=== PATIENT | female | born 1990 | race Caucasian/White ===

== ENCOUNTER 2020-09-08 03:49 | Inpatient (IN) ==
--- NOTE | 2020-09-08 04:12 | ERNOTE ---
Medical Problem HPI - Narrative Date of Service: 09/08/20 - General Chief Complaint: General Assessment Time Seen by Provider: 09/08/20 04:07 - Immun/Allergies/Home Medications Immunizations: IMMUNIZATION HX Immunizations Up to Date Yes Allergies/Adverse Reactions: Allergies No Known Allergies Allergy (Unverified 09/08/20 04:03) Home Medications: HOME MEDICATIONS NK 09/08/20 [Last Taken Unknown] - History of Present History Narrative: 30-year-old female status post vaginal delivery at home brought in by EMS. According to EMS patient had already delivered the baby prior to their arrival but upon arrival mother had some bleeding and delivered the placenta and the had Apgars of 8-9. Review of Systems - Review of Systems Constitutional: Present: See HPI Genitourinary: Present: other - Status post vaginal delivery All Other Systems: All systems neg except as marked Medical History (Last Reviewed 09/08/20 @ 04:32 by Андрей Dalton MD) No pertinent past medical history Surgical History: Surgical History (Last Reviewed 09/08/20 @ 04:32 by Андрей Dalton MD) No significant past surgical history Family History: Family History (Last Reviewed 09/08/20 @ 04:32 by Андрей Dalton MD) Other No pertinent family history Social History: (Last Reviewed 09/08/20 @ 04:32 by Андрей Dalton MD) Tobacco: Smoking Status: Never smoker Alcohol: alcohol intake: never Substance Use: substance use type: does not use Physical Exam - Physical Exam General Appearance: Present: wd/wn, alert, no apparent distress Head Exam: Present: normal inspection, no evidence of injury Neck: Present: normal inspection, nontender, supple, full range of motion Respiratory: Present: no respiratory distress, normal breath sounds, no accessory muscle use Cardiovascular/Chest: Present: regular rate, rhythm, normal peripheral pulses Pelvic Exam: Present: other - uterus below umbilicus continues some bleeding. placenta delivered Back Exam: Present: normal inspection Extremity Exam: Present: normal inspection, no edema Neurological Exam: Present: alert, oriented, normal mood/affect, no motor/sensory deficits Skin Exam: Present: normal color, warm/dry Progress - Date and Time Seen: Date and Time: 09/08/20 04:[address] Odom on-call for [employer] who recommended we transfer the patient over to the area and she will evaluate the patient there. However in an attempt to keep mother and baby together patient is still here therefore will place an IV and ordered Pitocin IM for 1 dose. Patient will be moved over shortly - Vital Signs Vital Signs: Vital Signs 09/08/20 03:50 Temperature 36.5 C Pulse Rate 128 H Respiratory Rate 16 Blood Pressure 151/99 H O2 Sat by Pulse Oximetry 98 - Progress/Reassessment Chief Complaint: General Assessment Departure Clinical Impression: Vaginal delivery - Departure Disposition: Short Term Hospital Inpatient Condition: Fair Referrals: Bc Harmon MD [Primary Care Provider] -
[2020-09-08 04:32] LABS: Hematocrit 32.9 % (37.0-47.0); Hemoglobin 10.7 gm/dL (12.5-16.0); Mean Cell Volume 78.5 fl (78-100); Mean Corpuscular Hemoglobin 25.5 pg (27-31); Mean Corpuscular Hgb Conc 32.5 g/dl (32-36); Mean Platelet Volume 11.3 fl (8-12.5); Platelet Count 248 K/mm3 (150-450); Red Blood Count 4.19 M/mm3 (4.2-5.4); Red Cell Distribution Width 14.2 % (11.5-14.0); White Blood Count 16.5 K/mm3 (4.0-10.5)
[2020-09-08] MEDS ORDERED: NORMAL SALINE 1,000 ML IV ONE (04:35)
[2020-09-08 04:43] LABS: Albumin * 2.2 gm/dl (3.4-5.0); Anion Gap 12.7 mmol/L (6.8-13.8); BUN/Creatinine Ratio 14.5 (9.0-21.6); Bilirubin, Total 0.2 mg/dL (0.0-1.1); Ca. Corrected For Albumin 9.6 mg/dL (8.4-10.2); Calcium * 8.5 mg/dL (7.9-10.9); Carbon Dioxide 23.3 mmol/L (24-32.6); Total Protein 5.9 gm/dL (6.2-8.2)
[2020-09-08] MEDS: OXYTOCIN 10 UNITS/ML SYRG IM ONE ×2 (04:57→05:40)
[2020-09-08 05:07] LABS: Urine Bilirubin Negative (NEGATIVE); Urine Blood 250 /ul (NEGATIVE); Urine Ketone Negative (NEGATIVE); Urine Nitrite Negative (NEGATIVE); Urine Protein >=300 mg/dL (NEGATIVE); Urine Specific Gravity 1.025 SP.GR. (1.005-1.010); Urine Urobilinogen Normal (NORMAL)
[2020-09-08 05:08] LABS: Urine Appearance Turbid (CLEAR); Urine Bacteria None Seen; Urine Color Red; Urine RBC >50 /hpf (0-5); Urine WBC None Seen /hpf (0-5)
[2020-09-08 05:14] LABS: Cocaine Ur Negative (NEGATIVE); Urine Barbiturate Negative (NEGATIVE); Urine Benzodiazepines Negative (NEGATIVE); Urine Opiates Negative (NEGATIVE); Urine PCP Negative (NEGATIVE)
[2020-09-08 05:19] LABS: Urine THC Negative (NEGATIVE)
[2020-09-08 11:40] LABS: Hematocrit 28.3 % (37.0-47.0); Hemoglobin 9.2 gm/dL (12.5-16.0); Mean Cell Volume 78.2 fl (78-100); Mean Corpuscular Hemoglobin 25.4 pg (27-31); Mean Corpuscular Hgb Conc 32.5 g/dl (32-36); Mean Platelet Volume 11.7 fl (8-12.5); Neutrophil # 11.4 K/mm3 (1.3-6.0); Neutrophil % 79.2 % (42-75.0); Platelet Count 214 K/mm3 (150-450); Red Blood Count 3.62 M/mm3 (4.2-5.4); White Blood Count 14.4 K/mm3 (4.0-10.5)
--- NOTE | 2020-09-08 12:06 | HP ---
Chief Complaint - Chief Complaint Date of Service: 09/08/20 Time of Service: 11:59 Chief Complaint: Patient delivered at home History of Present Illness: 30 year old at 32w 0d who delivered at home and was brought in by EMS. She does not want to give any of her history today so information is obtained from nursing staff. Her LMP was sometime in January and an maber told the patient her EDC was 11/03/2020. Medical History (Last Reviewed 09/08/20 @ 04:32 by Андрей Dalton MD) No pertinent past medical history Surgical History: Surgical History (Last Reviewed 09/08/20 @ 04:32 by Андрей Dalton MD) No significant past surgical history Family History: Family History (Last Reviewed 09/08/20 @ 04:32 by Андрей Dalton MD) Other No pertinent family history Social History: (Last Reviewed 09/08/20 @ 04:32 by Андрей Dalton MD) Tobacco: Smoking Status: Never smoker Alcohol: alcohol intake: never Substance Use: substance use type: does not use Review Of Systems (GEN) - Review of Systems Additional Comments: Unable to obtain. The patient does not want to speak to anyone today and is refusing all care Immunizations: IMMUNIZATION HX Immunizations Up to Date Yes Allergies/Adverse Reactions: Allergies Allergy/AdvReac Type Severity Reaction Status Date / Time No Known Allergies Allergy Unverified 09/08/20 04:03 Home Medications: HOME MEDICATIONS NK 09/08/20 [Last Taken Unknown] Exam - Exam Vital Signs: Vital Signs - Last Taken Temp 36.8 C 09/08/20 07:24 Pulse 86 09/08/20 08:30 Resp 16 09/08/20 08:30 BP 113/78 09/08/20 08:30 Pulse Ox 100 09/08/20 08:30 Constitutional: Present: Alert, Oriented x3, No distress ENT Exam: Present: hearing grossly normal Eye Exam: bilateral eye: normal inspection Skin Exam: Present: normal color Neurologic: Present: alert, oriented x 3 Appearance: Present: appropriate appearance, impaired insight Eye contact: Present: avoids eye contact, refused to answer, uncooperative Diagnostic Studies: Abnormal Lab Results 09/08/20 09/08/20 09/08/20 Range/Units 04:15 04:15 04:27 WBC 16.5 H (4.0-10.5) K/mm3 RBC 4.19 L (4.2-5.4) M/mm3 Hgb 10.7 L (12.5-16.0) gm/dL Hct 32.9 L (37.0-47.0) % MCH 25.5 L (27-31) pg RDW 14.2 H (11.5-14.0) % Immature Gran % (Auto) 0.50 H (0.001-0.429) % Immature Gran # (Auto) 0.08 H (0.000-0.0310) K/mm3 Neutrophils % 85.0 H (42-75.0) % Lymphocytes % 6.8 L (20-51) % Neutrophils # 14.0 H (1.3-6.0) K/mm3 Lymphocytes # 1.12 L (1.5-3.5) k/mm3 Monocytes # 1.2 H (0.0-1.0) k/mm3 Carbon Dioxide 23.3 L (24-32.6) mmol/L Est GFR (Non-Af Amer) 140 H (60-130) mL/min Random Glucose 112 H (70-110) mg/dL ALT 13 L (19-67) U/L Alkaline Phosphatase 208 H (50-170) U/L Total Protein 5.9 L (6.2-8.2) gm/dL Albumin 2.2 L (3.4-5.0) gm/dl Urine pH 8.0 H (5.0-7.0) pH Urine Protein >=300 H (NEGATIVE) mg/dL Urine Glucose (UA) 100 H (NEGATIVE) mg/dL Urine Blood 250 H (NEGATIVE) /ul Urine RBC >50 H (0-5) /hpf 09/08/20 Range/Units 11:33 WBC 14.4 H (4.0-10.5) K/mm3 RBC 3.62 L (4.2-5.4) M/mm3 Hgb 9.2 L (12.5-16.0) gm/dL Hct 28.3 L (37.0-47.0) % MCH 25.4 L (27-31) pg RDW (11.5-14.0) % Immature Gran % (Auto) 0.50 H (0.001-0.429) % Immature Gran # (Auto) 0.07 H (0.000-0.0310) K/mm3 Neutrophils % 79.2 H (42-75.0) % Lymphocytes % 11.2 L (20-51) % Neutrophils # 11.4 H (1.3-6.0) K/mm3 Lymphocytes # (1.5-3.5) k/mm3 Monocytes # 1.2 H (0.0-1.0) k/mm3 Carbon Dioxide (24-32.6) mmol/L Est GFR (Non-Af Amer) (60-130) mL/min Random Glucose (70-110) mg/dL ALT (19-67) U/L Alkaline Phosphatase (50-170) U/L Total Protein (6.2-8.2) gm/dL Albumin (3.4-5.0) gm/dl Urine pH (5.0-7.0) pH Urine Protein (NEGATIVE) mg/dL Urine Glucose (UA) (NEGATIVE) mg/dL Urine Blood (NEGATIVE) /ul Urine RBC (0-5) /hpf Laboratory Results WBC 14.4 K/mm3 (4.0-10.5) H 09/08/20 11:33 RBC 3.62 M/mm3 (4.2-5.4) L 09/08/20 11:33 Hgb 9.2 gm/dL (12.5-16.0) L 09/08/20 11:33 Hct 28.3 % (37.0-47.0) L 09/08/20 11:33 MCV 78.2 fl (78-100) 09/08/20 11:33 MCH 25.4 pg (27-31) L 09/08/20 11:33 MCHC 32.5 g/dl (32-36) 09/08/20 11:33 RDW 14.0 % (11.5-14.0) 09/08/20 11:33 Plt Count 214 K/mm3 (150-450) 09/08/20 11:33 MPV 11.7 fl (8-12.5) 09/08/20 11:33 Immature Gran % (Auto) 0.50 % (0.001-0.429) H 09/08/20 11:33 Immature Gran # (Auto) 0.07 K/mm3 (0.000-0.0310) H 09/08/20 11:33 Neutrophils % 79.2 % (42-75.0) H 09/08/20 11:33 Lymphocytes % 11.2 % (20-51) L 09/08/20 11:33 Monocytes % 8.4 % (0.0-9) 09/08/20 11:33 Eosinophils % 0.5 % (0.0-3.0) 09/08/20 11:33 Basophils % 0.2 % (0.0-1.0) 09/08/20 11:33 Nucleated RBC % 0.0 k/mm3 (0-1) 09/08/20 11:33 Neutrophils # 11.4 K/mm3 (1.3-6.0) H 09/08/20 11:33 Lymphocytes # 1.61 k/mm3 (1.5-3.5) 09/08/20 11:33 Monocytes # 1.2 k/mm3 (0.0-1.0) H 09/08/20 11:33 Eosinophils # 0.1 k/mm3 (0.0-0.7) 09/08/20 11:33 Absolute Basophils 0.0 k/mm3 (0.0-0.1) 09/08/20 11:33 Sodium 136 mmol/L (132-142) 09/08/20 04:15 Plasma Sodium 136 mmol/L (130-142) 09/08/20 04:15 Potassium 4.0 mmol/L (3.4-4.6) 09/08/20 04:15 Chloride 104 mmol/L (97-106) 09/08/20 04:15 Carbon Dioxide 23.3 mmol/L (24-32.6) L 09/08/20 04:15 Anion Gap 12.7 mmol/L (6.8-13.8) 09/08/20 04:15 BUN 8 mg/dL (3-23) 09/08/20 04:15 Creatinine 0.55 mg/dL (0.4-1.4) 09/08/20 04:15 Est GFR (Non-Af Amer) 140 mL/min (60-130) H 09/08/20 04:15 BUN/Creatinine Ratio 14.5 (9.0-21.6) 09/08/20 04:15 Random Glucose 112 mg/dL (70-110) H 09/08/20 04:15 Calcium 8.5 mg/dL (7.9-10.9) 09/08/20 04:15 Calcium Adj for Albumin 9.6 mg/dL (8.4-10.2) 09/08/20 04:15 Total Bilirubin 0.2 mg/dL (0.0-1.1) 09/08/20 04:15 AST 13 U/L (0-48) 09/08/20 04:15 ALT 13 U/L (19-67) L 09/08/20 04:15 Alkaline Phosphatase 208 U/L (50-170) H 09/08/20 04:15 Total Protein 5.9 gm/dL (6.2-8.2) L 09/08/20 04:15 Albumin 2.2 gm/dl (3.4-5.0) L 09/08/20 04:15 Urine Color Red 09/08/20 04:27 Urine Appearance Turbid (CLEAR) 09/08/20 04:27 Urine pH 8.0 pH (5.0-7.0) H 09/08/20 04:27 Ur Specific [place] 1.025 SP.GR. (1.005-1.010) 09/08/20 04:27 Urine Protein >=300 mg/dL (NEGATIVE) H 09/08/20 04:27 Urine Glucose (UA) 100 mg/dL (NEGATIVE) H 09/08/20 04:27 Urine Ketones Negative mg/dL (NEGATIVE) 09/08/20 04:27 Urine Blood 250 /ul (NEGATIVE) H 09/08/20 04:27 Urine Nitrate Negative (NEGATIVE) 09/08/20 04:27 Urine Bilirubin Negative mg/dl (NEGATIVE) 09/08/20 04:27 Urine Urobilinogen Normal EU/dl (NORMAL) 09/08/20 04:27 Ur Leukocyte Esterase Negative /ul (NEGATIVE) 09/08/20 04:27 Urine RBC >50 /hpf (0-5) H 09/08/20 04:27 Urine WBC None seen /hpf (0-5) 09/08/20 04:27 Ur Epithelial Cells None seen /hpf (0-5) 09/08/20 04:27 Urine Bacteria None seen (NONE) 09/08/20 04:27 Urine Culture Comments No culture indicated 09/08/20 04:27 Urine Opiates Screen Negative (NEGATIVE) 09/08/20 04:27 Barbiturate Screen Negative (NEGATIVE) 09/08/20 04:27 Ur Phencyclidine Scrn Negative (NEGATIVE) 09/08/20 04:27 Urine Amphetamine Negative (NEGATIVE) 09/08/20 04:27 U Benzodiazepines Scrn Negative (NEGATIVE) 09/08/20 04:27 Urine Cocaine Screen Negative (NEGATIVE) 09/08/20 04:27 Urine Marijuana (THC) Negative (NEGATIVE) 09/08/20 04:27 Ethyl Alcohol Less than 3.0 mg/dL (0.0-10.0) 09/08/20 11:33 Pathology Specimen Spec to path 09/08/20 05:42 Blood Type O Positive 09/08/20 04:45 Antibody Screen Negative 09/08/20 04:45 Assessment/Plan - Narrative Narrative: 30 year old at 32w 0d The patient delivered at home. transferred to [facility]. The patient refuses to answer questions or be examined. PNL ordered UDS negative on admission Alcohol level ordered and it was negative The patient was counseled that if she continues to refuse care she will have to sign an against medical advice form - Assessment/Plan (1) 32 weeks gestation of Problem: Acute (2) No care in current in third trimester Problem: Acute (3) Vaginal delivery Problem: Acute
--- NOTE | 2020-09-09 08:12 | PN ---
Subjective - Date and Time Seen Date: 09/09/20 Time: 08:11 Subjective Narrative: Patient without complaints Objective Objective Narrative: See vital signs - Review of Systems Generalized/Overall Review: Reports: No Symptoms Reported Misc: All systems neg except as marked - Vitals Vitals: Last Vital Signs Temp 36.3 C 09/09/20 01:58 Pulse 110 H 09/09/20 01:58 Resp 22 H 09/09/20 01:58 BP 138/84 09/09/20 01:58 Pulse Ox 100 09/09/20 01:58 - Abnormal Lab Findings Abnormal Lab Findings: Abnormal Lab Results 09/08/20 Range/Units 11:33 WBC 14.4 H (4.0-10.5) K/mm3 RBC 3.62 L (4.2-5.4) M/mm3 Hgb 9.2 L (12.5-16.0) gm/dL Hct 28.3 L (37.0-47.0) % MCH 25.4 L (27-31) pg Immature Gran % (Auto) 0.50 H (0.001-0.429) % Immature Gran # (Auto) 0.07 H (0.000-0.0310) K/mm3 Neutrophils % 79.2 H (42-75.0) % Lymphocytes % 11.2 L (20-51) % Neutrophils # 11.4 H (1.3-6.0) K/mm3 Monocytes # 1.2 H (0.0-1.0) k/mm3 - Exam Constitutional: Present: Alert, Oriented x3, Cooperative, No distress ENT Exam: Present: hearing grossly normal Neck: Present: normal inspection Abdomen: Present: soft, nontender, nondistended - fundus is firm Extremity: Present: non-tender, no calf tenderness Skin Exam: Present: normal color, warm/dry, no cyanosis Neurologic: Present: alert, normal mood/affect, oriented x 3 Appearance: Present: appropriate appearance, appropriate insight, neat, no memory impairment Eye contact: Present: cooperative, good eye contact, normal speech Thoughts: Present: normal thought pattern, no apparent hallucination Assessment/Plan Plan Narrative: PPD 1 s/p at home Doing well Discharge today - Problems/Diagnosis (1) 32 weeks gestation of Problem: Acute (2) No care in current in third trimester Problem: Acute (3) Vaginal delivery Problem: Acute
--- NOTE | 2020-09-09 08:16 | DS ---
OB Discharge Summary (1) 32 weeks gestation of Status: Acute (2) No care in current in third trimester Status: Acute (3) Vaginal delivery Status: Acute Delivery Date: 09/08/20 :: 2 Para:: 2 Gestational weeks:: 32 Gestational days:: 0 Intrapartum Procedures: Other - at home, placenta delivered by RN in the ER Procedures: None /OP Complications: No Complications Discharge Diagnosis: Premature Labor, Delivery - Discharge Information Date of Discharge: 09/09/20 Hospital Course: The patient delivered at home. The placenta was delivered in the ER by OB RN. course uncomplicated. Discharge Location: Home Disposition: Home self-care Condition: Good Referrals: Bc Harmon MD [Primary Care Provider] - Activity on Discharge:: Activity as tolerated, Pelvic Rest Discharge Diet: General/regular food Complete Home Medications List: Complete Home Medication List: NK 09/08/20 - Plan Discharge to:: Home Comment:: Routine Discharge Instructions Follow up in office in:: Other - 4 weeks - Information Weight (Grams): 2,295 Infant Sex: Female Score 1 min: 8 Score 5 min: 9 Infant Complications: Other - Transfer to the [facility] Other Complications: home delivery with no care. pt states she looked it up on an amber and her EDC is 11/03/20. delivery sometime between [id number]. pt wants to give baby up for adoption.
[2020-09-09 08:17] VITALS: BP 126/82
[2020-09-10 12:21] LABS: Hep B Surface Antigen Confirm DNR
[2020-09-10 12:35] LABS: Hepatitis B Surface Antigen NON-REACTIVE (NON-REACTIVE)
== END 2020-09-09 11:00 | disposition home or self-care (01) | DRG 776 ==
LOC: ER 03:49 → OB 05:05
PROVIDERS: ADMIT Obstetrics & Gynecology; ATTEND Obstetrics & Gynecology
DX: Z39.0 Encounter for care and examination of mother immediately after delivery